=== PATIENT | male | born 1945 | race Caucasian/White ===

== ENCOUNTER 2017-09-10 06:48 | Day surgery (SDC) | payer OTHER ==
[2017-09-10] MEDS ORDERED: VERSED ONE (08:55)
[2017-09-10] MEDS ORDERED: DIPRIVAN 20 ML VIAL IVP ONE (08:55)
--- NOTE | 2017-09-10 14:47 | OP ---
PROCEDURE: COLONOSCOPY TO THE CECUM WITH SNARE POLYPECTOMY. ENDOSCOPIST: Sharath MORAN M.D. INDICATION: HISTORY OF POLYPS. DATE OF LAST COLONOSCOPY 2011. INSTRUMENT: [id number]. MEDICATION: PER ANESTHESIA. PROCEDURE: The patient was positioned for colonoscopy. The digital rectal exam was negative. The colonoscope was inserted through the anus and advanced under direct visualization to the level of the cecum. The cecum was identified using the ileocecal valve and the appendiceal orifice as landmarks. The scope was slowly withdrawn through an adequately prepped colon. Small polyps were removed at 70 cm and 40 cm from the anal verge, both using snare cautery. Scattered diverticulosis was noted throughout the left colon. The retroflex exam was otherwise normal. The patient tolerated the procedure without immediate complication. Withdrawal time 12 min and 28 seconds. PLAN: 1. Review pathology with anticipated repeat colonoscopy for surveillance in 5 years. CC: DR. SAVANAH SIERRA
[2017-09-10 14:56] VITALS: BP 132/78; TEMP 97.4
== END 2017-09-10 10:30 | disposition home or self-care (01) ==
LOC: SURG 06:48
PROVIDERS: ATTEND Internal Medicine Gastroenterology
DX: Z09 Encounter for follow-up examination after completed treatment for conditions other than malignant neoplasm (principal); Z86.010 Personal history of colon polyps; D12.4 Benign neoplasm of descending colon; D12.5 Benign neoplasm of sigmoid colon; K57.30 Diverticulosis of large intestine without perforation or abscess without bleeding

== ENCOUNTER 2017-12-20 14:31 | Outpatient (CLI) | payer OTHER ==
[2017-12-20 16:16] VITALS: BMI 23.5
== END 2017-12-20 14:32 | disposition home or self-care (01) ==
LOC: DIETCN 14:31
PROVIDERS: ATTEND Family Medicine
DX: E11.9 Type 2 diabetes mellitus without complications (principal)

== ENCOUNTER 2018-01-07 12:36 | Outpatient (CLI) ==
--- NOTE | 2018-01-07 14:47 | DI ---
Exam: Two views of the chest. Comparison: None available. Reason for exam: Cough. FINDINGS: Operative changes are seen after midline sternotomy. There is flattening of both hemidiap hragms. There is blunting of the right costophrenic angle. No pneumothorax is seen. Impression: 1. Blunting of the right costophrenic angle likely atelectasis/pneumonia. 2. Parenchymal changes are seen suggesting chronic lung disease.
== END 2018-01-07 12:37 | disposition home or self-care (01) ==
LOC: RAD 12:36
PROVIDERS: ATTEND Family Medicine
DX: R05 Cough (principal)